=== PATIENT | female | born 1950 | race Asian ===

== ENCOUNTER 2018-03-06 06:20 | Inpatient (IN) | payer MEDICARE ==
[~2018-03-06] VITALS: Ht 154.9 cm; Wt 58.3 kg
[~2018-03-06 06:20] MED LIST: ALPR0.257 PO; ASPI-515 PO; ATOR10TA9 PO; HYDR12.53 PO; IRBE300T16 PO; METO25TA35 PO; OMEP-110 PO; PANT40TA5 PO; TERA2CAP3 PO; TRAZ50TA18 PO
[2018-03-06] MEDS ORDERED: SODIUM CHLORIDE FLUSH 10ML SYR IVF ONE (07:00)
[2018-03-06 07:01] LABS: MEAN CORPUSCULAR HEMOGLOBIN 32.5 pg (27.0-34.8); MEAN CORPUSCULAR HGB CONC 34.3 g/dL (32.4-35.8); MEAN CORPUSCULAR VOLUME 94.6 fL (80-100); MEAN PLATELET VOLUME 6.7 fL (7.4-10.4); PLATELET COUNT 185 x10^3/uL (130-400); RED BLOOD COUNT 3.53 x10^6/uL (3.82-5.3); RED CELL DISTRIBUTION WIDTH 12.6 % (9.6-15.2)
[2018-03-06] MEDS ORDERED: SODIUM CHLORIDE 0.9% 1,000 ML IV ONE ×2 (07:05→10:24)
[2018-03-06 07:13] LABS: ALANINE AMINOTRANSFERASE 15 U/L (12-78); ALBUMIN 2.5 g/dL (3.4-5.0); ANION GAP 12 mmol/L (5-15); CALCIUM 7.9 mg/dL (8.5-10.1); CHLORIDE 95 mmol/L (98-107)
[2018-03-06 07:15] LABS: ALKALINE PHOSPHATASE 76 U/L (45-117); BILIRUBIN,TOTAL 1.2 mg/dL (0.2-1.0); TOTAL PROTEIN 6.1 g/dL (6.4-8.2)
[2018-03-06 07:18] LABS: MD YES
[2018-03-06] MEDS ORDERED: SODIUM CHLORIDE 0.9% 1,000ML IVBOLUS ONE ×2 (07:30→19:30)
[2018-03-06] MEDS ORDERED: ONDANSETRON ODT 4 MG ONE (07:37)
[2018-03-06] MEDS ORDERED: ACETAMINOPHEN 325 MG TABLET ONE ×2 (07:37→14:04)
[2018-03-06 07:49] LABS: <PLATELET ESTIMATE> ADEQUATE; <PLT MORPHOLOGY> NORMAL PLT MORPH; <RBC MORPHOLOGY> NORMAL; BAND#(MANUAL) 0.39 x10^3/uL; BANDS%(MANUAL) 4 % (0-7); LYMPH#(MANUAL) 2.55 x10^3/uL (1-3.4); LYMPHS% (MANUAL) 26 % (22-44); MONOS#(MANUAL) 0.59 x10^3/uL (0.3-2.7); MONOS% (MANUAL) 6 % (2-9); SEG#(MANUAL) 6.27 x10^3/uL (1.8-6.8); SEGS% (MANUAL) 64 % (42-75)
[2018-03-06] MEDS ORDERED: ONDANSETRON ODT 4 MG PO ONE (08:00)
[2018-03-06] MEDS ORDERED: ACETAMINOPHEN 325 MG TABLET PO ONE (08:00)
[2018-03-06] MEDS ORDERED: LOSA100T6 PO (08:06)
[2018-03-06] MEDS ORDERED: AMLO10TA4 PO (08:06)
[2018-03-06] MEDS ORDERED: KDUR PO (08:06)
[2018-03-06] MEDS ORDERED: CEFTRIAXONE PMX 1GM/50ML 50 ML ONE (08:18)
[2018-03-06 08:27] LABS: MICROSCOPIC INDICATED
[2018-03-06] MEDS ORDERED: CEFTRIAXONE PMX 1GM/50ML 50 ML IVPB ONE (08:30)
[2018-03-06 08:44] LABS: CULTURE INDICATED? NO
[2018-03-06] MEDS ORDERED: OMNIPAQUE 350 MG/ML, 100ML BOTTLE ONE (09:00)
[2018-03-06] MEDS ORDERED: METRONIDAZOLE PMX 500MG/100ML 100 ML IVPB ONE (09:30)
[2018-03-06] MEDS ORDERED: METRONIDAZOLE PMX 500MG/100ML 100 ML ONE (09:40)
[2018-03-06] MEDS ORDERED: ONDANSETRON 2MG/ML, 2ML IVPush PRN (10:30)
[2018-03-06] MEDS ORDERED: LABETALOL 5MG/ML, 20ML IVPush PRN (10:30)
[2018-03-06] MEDS ORDERED: morphine SULFATE 10 MG/ML, 1ML IVPush PRN (10:30)
[2018-03-06] MEDS ORDERED: HYDROcodone/APAP 5/325 TABLET PO PRN (10:30)
[2018-03-06] MEDS ORDERED: SODIUM CHLORIDE FLUSH 10ML SYR IVF PRN (10:30)
[2018-03-06 11:08] LABS: CLOSTRIDIUM DIFFICILE ANTIGEN POSITIVE
[2018-03-06 11:09] LABS: CLOSTRIDIUM DIFFICILE TOXIN POSITIVE (Negative)
[2018-03-06 11:10] LABS: INTERNATIONAL NORMALIZED RATIO 1.12 (0.93-1.1); PROTHROMBIN TIME 11.5 Seconds (9.6-11.5)
[2018-03-06 11:28] LABS: FREE T4 (FREE THYROXINE) 1.74 ng/dL (0.76-1.46); THYROID STIMULATING HORMONE 0.726 mIU/L (0.358-3.740)
[2018-03-06 11:54] LABS: HCT (SEDRATE) 33.4 % (34.6-47.8)
[2018-03-06] MEDS ORDERED: SODIUM CHLORIDE 0.9%, 500ML IVBOLUS ONE (12:00)
[2018-03-06] MEDS ORDERED: SODIUM PHOSPHATE 4 MEQ/ML IV SCH (12:00)
[2018-03-06] MEDS ORDERED: VANCOMYCIN 50 MG/ML ORAL SUSP PO SCH ×2 (12:00)
[2018-03-06] MEDS: SODIUM CHLORIDE 0.9% 1,000 ML IV SCH ×2 (12:00→17:07)
[2018-03-06] MEDS ORDERED: MAGNESIUM SULFATE PMX 2GM/50ML 50 ML IV ONE (12:00)
[2018-03-06] MEDS ORDERED: SODIUM PHOSPHATE 30 MMOL in SODIUM CHLORIDE 0.9% 500 ML IV ONE (12:30)
[2018-03-06] MEDS ORDERED: NOREPINEPHRINE 4 MG in SODIUM CHLORIDE 0.9% 246 ML IV PRN (13:00)
[2018-03-06] MEDS: METRONIDAZOLE PMX 500MG/100ML 100 ML IV SCH ×2 (13:11→20:23)
[2018-03-06] MEDS: ACETAMINOPHEN 325 MG TABLET PO PRN ×3 (14:13→22:56)
[2018-03-06] MEDS: VANCOMYCIN 50 MG/ML ORAL SUSP PO SCH (18:02)
[2018-03-07] MEDS: VANCOMYCIN 50 MG/ML ORAL SUSP PO SCH ×5 (00:15→23:31)
[2018-03-07] MEDS ORDERED: SODIUM CHLORIDE 0.9% 500 ML IV ONE (00:30)
[2018-03-07] MEDS ORDERED: SODIUM CHLORIDE 0.9% 500 ML IV SCH (01:00)
[2018-03-07] MEDS: SODIUM CHLORIDE 0.9% 1,000 ML IV SCH ×4 (01:43→20:16)
[2018-03-07] MEDS: METRONIDAZOLE PMX 500MG/100ML 100 ML IV SCH ×4 (01:44→20:16)
[2018-03-07 04:00] VITALS: BP 86/38
[2018-03-07 04:39] LABS: MEAN CORPUSCULAR HEMOGLOBIN 32.3 pg (27.0-34.8); MEAN CORPUSCULAR HGB CONC 33.8 g/dL (32.4-35.8); MEAN CORPUSCULAR VOLUME 95.6 fL (80-100); MEAN PLATELET VOLUME 7.3 fL (7.4-10.4); PLATELET COUNT 163 x10^3/uL (130-400); RED BLOOD COUNT 3.22 x10^6/uL (3.82-5.3)
[2018-03-07 04:42] LABS: ALANINE AMINOTRANSFERASE 14 U/L (12-78); ALBUMIN 1.9 g/dL (3.4-5.0); ANION GAP 10 mmol/L (5-15); CALCIUM 6.8 mg/dL (8.5-10.1); CHLORIDE 106 mmol/L (98-107); CREATININE 0.91 mg/dL (0.55-1.02)
[2018-03-07 04:45] LABS: ALKALINE PHOSPHATASE 65 U/L (45-117); BILIRUBIN,TOTAL 0.5 mg/dL (0.2-1.0); TOTAL PROTEIN 4.9 g/dL (6.4-8.2)
[2018-03-07 05:46] LABS: MD YES
[2018-03-07 05:50] LABS: BAND#(MANUAL) 1.33 x10^3/uL; BANDS%(MANUAL) 12 % (0-7); EOS#(MANUAL) 0.22 x10^3/uL (0.0-0.4); EOS% (MANUAL) 2 % (1-7); LYMPH#(MANUAL) 0.56 x10^3/uL (1-3.4); LYMPHS% (MANUAL) 5 % (22-44); METAMYELOCYTES# (MANUAL) 0.11 x10^3/uL (0-0); METAMYELOCYTES% (MANUAL) 1 % (0-1); MONOS% (MANUAL) 27 % (2-9); SEG#(MANUAL) 5.88 x10^3/uL (1.8-6.8); SEGS% (MANUAL) 53 % (42-75)
[2018-03-07 05:51] LABS: <RBC MORPHOLOGY> NORMAL
[2018-03-07 05:52] LABS: <PLATELET ESTIMATE> ADEQUATE; <PLT MORPHOLOGY> NORMAL PLT MORPH
[2018-03-07] MEDS: LACTOBACILLUS CHEW TABLET PO SCH ×3 (12:27→20:16)
[2018-03-07] MEDS: ENOXAPARIN 40 MG/0.4 ML SQ SCH (12:27)
[2018-03-07] MEDS: ACETAMINOPHEN 325 MG TABLET PO PRN (12:29)
[2018-03-07] MEDS ORDERED: LACTATED RINGERS 500 ML IVBOLUS ONE (15:30)
[2018-03-07] MEDS: PANTOPROZOLE 40MG TABLET PO SCH (20:29)
[2018-03-07] MEDS ORDERED: CALCIUM CARBONATE 500 MG TAB.CHEW PO PRN (20:30)
[2018-03-08] MEDS: ONDANSETRON ODT 4 MG PO PRN ×2 (02:05→08:52)
[2018-03-08] MEDS: METRONIDAZOLE PMX 500MG/100ML 100 ML IV SCH ×4 (02:06→20:05)
[2018-03-08 04:41] VITALS: BP 114/46
[2018-03-08 04:45] LABS: BASOPHILS % (AUTO) 0 % (0-1); EOSINOPHILS # (AUTO) 0.39 x10^3/uL (0-0.4); EOSINOPHILS % (AUTO) 3 % (1-7); LYMPHOCYTES # (AUTO) 0.63 x10^3/uL (1-3.4); LYMPHOCYTES % (AUTO) 5 % (22-44); MD NO; MEAN CORPUSCULAR HEMOGLOBIN 32.3 pg (27.0-34.8); MEAN CORPUSCULAR VOLUME 95.1 fL (80-100); MEAN PLATELET VOLUME 7.6 fL (7.4-10.4); MONOCYTES # (AUTO) 1.38 x10^3/uL (0.2-0.8); MONOCYTES % (AUTO) 11 % (2-9); NEUTROPHILS # (AUTO) 9.88 x10^3/uL (1.8-6.8); NEUTROPHILS % (AUTO) 81 % (42-75); PLATELET COUNT 189 x10^3/uL (130-400)
[2018-03-08 04:50] LABS: ANION GAP 10 mmol/L (5-15); CALCIUM 6.9 mg/dL (8.5-10.1); CHLORIDE 108 mmol/L (98-107)
[2018-03-08 04:58] LABS: ALANINE AMINOTRANSFERASE 13 U/L (12-78); ALBUMIN 1.8 g/dL (3.4-5.0); ALKALINE PHOSPHATASE 96 U/L (45-117); BILIRUBIN,TOTAL 0.3 mg/dL (0.2-1.0); CREATININE 0.63 mg/dL (0.55-1.02)
[2018-03-08] MEDS ORDERED: POTASSIUM PHOSPHATE 44 MEQ in SODIUM CHLORIDE 0.9% 500 ML IV ONE ×2 (05:30→08:30)
[2018-03-08] MEDS: VANCOMYCIN 50 MG/ML ORAL SUSP PO SCH ×3 (06:05→17:57)
[2018-03-08] MEDS: SODIUM CHLORIDE 0.9% 1,000 ML IV SCH ×2 (07:39→20:05)
[2018-03-08] MEDS: PANTOPROZOLE 40MG TABLET PO SCH (07:56)
[2018-03-08] MEDS: LACTOBACILLUS CHEW TABLET PO SCH ×3 (07:56→20:05)
[2018-03-08] MEDS: ENOXAPARIN 40 MG/0.4 ML SQ SCH (12:24)
[2018-03-08 12:27] VITALS: BP 129/74
[2018-03-08 19:41] VITALS: BP 103/56
[2018-03-09] MEDS: VANCOMYCIN 50 MG/ML ORAL SUSP PO SCH ×3 (00:21→12:31)
[2018-03-09] MEDS: METRONIDAZOLE PMX 500MG/100ML 100 ML IV SCH ×2 (02:25→08:44)
[2018-03-09 03:04] VITALS: BP 102/55
[2018-03-09 05:16] LABS: ALBUMIN 1.8 g/dL (3.4-5.0); ANION GAP 11 mmol/L (5-15); CALCIUM 7.2 mg/dL (8.5-10.1); CHLORIDE 107 mmol/L (98-107); MEAN CORPUSCULAR HEMOGLOBIN 32.4 pg (27.0-34.8); MEAN CORPUSCULAR HGB CONC 33.9 g/dL (32.4-35.8); MEAN CORPUSCULAR VOLUME 95.5 fL (80-100); MEAN PLATELET VOLUME 7.4 fL (7.4-10.4); PLATELET COUNT 204 x10^3/uL (130-400); RED BLOOD COUNT 3.44 x10^6/uL (3.82-5.3); RED CELL DISTRIBUTION WIDTH 13.4 % (9.6-15.2)
[2018-03-09 05:19] LABS: ALANINE AMINOTRANSFERASE 27 U/L (12-78); ALKALINE PHOSPHATASE 94 U/L (45-117); BILIRUBIN,TOTAL 0.5 mg/dL (0.2-1.0); CREATININE 0.62 mg/dL (0.55-1.02); TOTAL PROTEIN 4.9 g/dL (6.4-8.2)
[2018-03-09 05:55] LABS: MD YES
[2018-03-09 05:57] LABS: EOS#(MANUAL) 0.27 x10^3/uL (0.0-0.4); EOS% (MANUAL) 5 % (1-7); LYMPH#(MANUAL) 0.64 x10^3/uL (1-3.4); LYMPHS% (MANUAL) 12 % (22-44); MONOS% (MANUAL) 17 % (2-9); NRBC % (MANUAL) 3 % (0-1); SEGS% (MANUAL) 66 % (42-75)
[2018-03-09 05:58] LABS: POLYCHROMASIA 1+
[2018-03-09 05:59] LABS: <PLATELET ESTIMATE> ADEQUATE; <PLT MORPHOLOGY> NORMAL PLT MORPH
[2018-03-09] MEDS: ONDANSETRON ODT 4 MG PO PRN (06:18)
[2018-03-09 08:04] VITALS: BP 112/61
[2018-03-09] MEDS: PANTOPROZOLE 40MG TABLET PO SCH (08:44)
[2018-03-09] MEDS: SODIUM CHLORIDE 0.9% 1,000 ML IV SCH (08:46)
[2018-03-09] MEDS: LACTOBACILLUS CHEW TABLET PO SCH (09:00)
[2018-03-09] MEDS ORDERED: POTASSIUM PHOSPHATE 44 MEQ in SODIUM CHLORIDE 0.9% 500 ML IV ONE (10:00)
[2018-03-09] MEDS: ENOXAPARIN 40 MG/0.4 ML SQ SCH (12:31)
[2018-03-09] MEDS ORDERED: VANC1VIA3 PO (13:12)
[2018-03-09] MEDS ORDERED: FAMO20TA37 PO (13:12)
[2018-03-09 13:49] VITALS: BP 126/69
== END 2018-03-09 14:45 | disposition home or self-care (01) | DRG 871 ==
LOC: ED 10:23 → EDIP 10:24 → ED 10:50 → CCU 13:12 → 3NW 03-08 11:30
PROVIDERS: ADMIT Hospitalist; ATTEND Hospitalist
DX: A41.9 Sepsis, unspecified organism (principal); E43 Unspecified severe protein-calorie malnutrition; R65.21 Severe sepsis with septic shock; N17.9 Acute kidney failure, unspecified; A04.72 Enterocolitis due to Clostridium difficile, not specified as recurrent; E83.39 Other disorders of phosphorus metabolism; E83.42 Hypomagnesemia; I07.1 Rheumatic tricuspid insufficiency; D64.9 Anemia, unspecified; E78.5 Hyperlipidemia, unspecified; K21.9 Gastro-esophageal reflux disease without esophagitis; J06.9 Acute upper respiratory infection, unspecified; I10 Essential (primary) hypertension; Z79.899 Other long term (current) drug therapy; Z79.2 Long term (current) use of antibiotics; Z79.82 Long term (current) use of aspirin; Z80.9 Family history of malignant neoplasm, unspecified; Z68.24 Body mass index [BMI] 24.0-24.9, adult
CPT/HCPCS: 36415; 71045; 74177; 80053; 81001; 82533; 83605; 83690; 83735; 83880; 84100; 84132; 84439; 84443; 85025; 85610; 85651; 87040; 87081; 87324; 89055; 93005; 93306; 96361; 96365; 96366; 96367; 96368; J0696; J1650; J3370; J7120; Q0162; Q9967; J3475; J7030; J7040; J7050

== ENCOUNTER → 2018-04-20 | Outpatient (CLI) | payer MEDICARE ==
[~2018-04-20] MED LIST changes: +AMLO10TA4 PO; +FAMO20TA37 PO; +KDUR PO; +LOSA100T6 PO; +VANC1VIA3 PO
== END | disposition home or self-care (01) ==
LOC: CFH 13:32
PROVIDERS: ATTEND Nurse Practitioner
DX: Z12.31 Encounter for screening mammogram for malignant neoplasm of breast (principal); M81.0 Age-related osteoporosis without current pathological fracture; N95.8 Other specified menopausal and perimenopausal disorders
CPT/HCPCS: 77080; 77067

== ENCOUNTER 2018-12-05 22:18 | Inpatient (IN) | payer MEDICARE ==
[~2018-12-05] VITALS: Ht 152.4 cm; Wt 47.7 kg
[~2018-12-05 22:18] MED LIST changes: +HYDR12.517 PO; -HYDR12.53 PO; -LOSA100T6 PO; +LOSA100T7 PO; -TRAZ50TA18 PO; +TRAZ50TA66 PO
--- NOTE | 2018-12-05 23:06 | NUR ---
PT AND PT DAUGHTER REPORTS N/V ALL DAY TODAY, PT STARTED NEW ABX YESTERDAY AND THINKS THAT MAY BE WHAT IS MAKING HER SICK. PT DENIES DIARRHEA. PT HAVING ABD PAIN R/T VOMITING. PT IN ROOM DRY HEAVING. DAUGHTER CONTINUES AT BEDSIDE. WARM BLANKET PROVIDED. PT A/OX4, BREATHING E/U WHEN NOT VOMITING. CALL LIGHT IN REACH.
--- NOTE | 2018-12-05 23:07 | NUR ---
MD TO BEDSIDE FOR PT EVAL.
[2018-12-05] MEDS ORDERED: ONDANSETRON ODT 4 MG PO ONE (23:30)
[2018-12-05] MEDS ORDERED: FAMOTIDINE 20 MG TABLET PO ONE (23:30)
[2018-12-05] MEDS ORDERED: ACETAMINOPHEN 500 MG TABLET PO ONE (23:30)
[2018-12-05 23:34] LABS: BASOPHILS # (AUTO) 0.01 x10^3/uL (0-0.1); BASOPHILS % (AUTO) 0 % (0-1); EOSINOPHILS # (AUTO) 0.03 x10^3/uL (0-0.4); EOSINOPHILS % (AUTO) 0 % (1-7); LYMPHOCYTES # (AUTO) 1.29 x10^3/uL (1-3.4); LYMPHOCYTES % (AUTO) 17 % (22-44); MD NO; MEAN CORPUSCULAR HEMOGLOBIN 32.7 pg (27.0-34.8); MEAN CORPUSCULAR HGB CONC 33.7 g/dL (32.4-35.8); MEAN CORPUSCULAR VOLUME 97.1 fL (80-100); MONOCYTES # (AUTO) 0.64 x10^3/uL (0.2-0.8); MONOCYTES % (AUTO) 9 % (2-9); NEUTROPHILS # (AUTO) 5.49 x10^3/uL (1.8-6.8); NEUTROPHILS % (AUTO) 74 % (42-75); PLATELET COUNT 194 x10^3/uL (130-400); RED BLOOD COUNT 4.07 x10^6/uL (3.82-5.3); RED CELL DISTRIBUTION WIDTH 12.8 % (9.6-15.2)
[2018-12-05] MEDS ORDERED: FAMOTIDINE 20 MG TABLET ONE (23:42)
[2018-12-05] MEDS ORDERED: ONDANSETRON ODT 4 MG ONE ×2 (23:42→23:47)
[2018-12-05] MEDS ORDERED: ACETAMINOPHEN 500 MG TABLET ONE (23:42)
[2018-12-05 23:45] LABS: ALANINE AMINOTRANSFERASE 21 U/L (12-78); ALBUMIN 3.7 g/dL (3.4-5.0); ANION GAP 9 mmol/L (5-15); CALCIUM 8.8 mg/dL (8.5-10.1); CHLORIDE 93 mmol/L (98-107); CREATININE 1.03 mg/dL (0.55-1.02)
[2018-12-05 23:48] LABS: ALKALINE PHOSPHATASE 89 U/L (45-117); BILIRUBIN,TOTAL 0.8 mg/dL (0.2-1.0); TOTAL PROTEIN 7.6 g/dL (6.4-8.2)
--- NOTE | 2018-12-05 23:49 | NUR ---
PT RECIEVED MEDS PER ORDERS, SEE EMAR. PT DROPPED FIRST ZOFRAN, ANOTHER ZOFRAN PULLED AND GIVEN TO PT. PT ONLY RECIEVED ONE ZOFRAN. PT STATES SHE DOES NOT THINK SHE CAN URINTE AT THIS TIME. WILL WAIT FOR MEDS TO TAKE EFFECT FOR PT TO URINATE. PT RESTING IN BED, NO EMESIS AT THIS TIME. PT FAMILY AT BEDSIDE. WILL CONTINUE TO MONITOR.
--- NOTE | 2018-12-06 00:15 | NUR ---
PT UP TO RESTROOM WITH STEADY GAIT FOR URINE SAMPLE. PT REPORTS IMPROVED NAUSEA AND ABD PAIN.
--- NOTE | 2018-12-06 00:32 | NUR ---
PT BACK TO BED WITH STEADY GAIT. URINE SENT TO LAB. URINE IS BRIGHT ORANGE, PT REPORTS SHE TOOK PYRIDIUM FOR THE UTI PAIN. PT RESTING IN BED, FAMILY CONTINUES AT BEDSIDE. PT REPORTS ABD CONTINUES TO IMRPOVE WELL NAUSEA. NO EMESIS SINCE MEDS GIVEN.
[2018-12-06 00:50] LABS: CULTURE INDICATED? YES; MICROSCOPIC INDICATED
--- NOTE | 2018-12-06 00:59 | NUR ---
REPORT TO MEHRAN JUAREZ FOR LUNCH RELIEF.
[2018-12-06] MEDS ORDERED: CEFDINIR 300 MG CAPSULE ONE (01:00)
--- NOTE | 2018-12-06 01:07 | NUR ---
BREAK RN: PT MEDICATED PER EMAR, PO CHALLENGE SUCCESS. PT STATES SHE HAS BEEN TAKING SIPS OF WATER WITHOUT EMESIS. MD WILLS
--- NOTE | 2018-12-06 01:33 | NUR ---
REPORT FROM MEHRAN JUAREZ
--- NOTE | 2018-12-06 01:34 | NUR ---
MD TO BEDSIDE FOR UPDATE.
[2018-12-06] MEDS ORDERED: ONDANSETRON 2MG/ML, 2ML ONE (01:49)
[2018-12-06] MEDS ORDERED: ONDANSETRON 2MG/ML, 2ML IVPush ONE (02:00)
--- NOTE | 2018-12-06 02:11 | NUR ---
IV PLACED. PT RECIEVED ZOFRAN PER ORDERS, SEE EMAR. VSS. PT AWAITING ROOM ASSIGNMENT. PT RESTING COMFORTABLY WITH FAMILY AT BEDSIDE. NO ACUTE DISTRESS NOTED.
[2018-12-06] MEDS ORDERED: OMEP20TA62 PO (02:34)
[2018-12-06] MEDS ORDERED: SPIR25TA5 PO (02:34)
[2018-12-06] MEDS ORDERED: AMLO2.5T3 PO (02:35)
--- NOTE | 2018-12-06 02:35 | NUR ---
MED LIST UPDATED. PT RESTING COMFORTABLY, DENIES NEEDS. PT AWAITING ROOM ASSIGNMENT. VSS. WILL CONTINUE TO MONITOR. NO EMESIS NOTED.
--- NOTE | 2018-12-06 03:21 | NUR ---
PT UP TO RESTROOM AND BACK TO BED WITH STEADY GAIT. PT RESTING COMFORTABLY AT THIS TIME, DENIES FUTHER NEEDS. WILL MONITOR.
--- NOTE | 2018-12-06 03:36 | NUR ---
report to Abbie JUAREZ. pt to go to room 465.
[2018-12-06] MEDS ORDERED: ONDANSETRON 2MG/ML, 2ML IVPush PRN (05:30)
[2018-12-06] MEDS ORDERED: ACETAMINOPHEN 325 MG TABLET PO PRN (05:30)
[2018-12-06] MEDS ORDERED: POLYETHYLENE GLYCOL 17 GM PACKET PO PRN (05:30)
[2018-12-06] MEDS ORDERED: IBUPROFEN 600 MG TABLET PO PRN (05:30)
[2018-12-06] MEDS: CEFTRIAXONE PMX 2GM/50ML 50 ML IV SCH (06:02)
[2018-12-06] MEDS: ENOXAPARIN 40 MG/0.4 ML SQ SCH (06:03)
[2018-12-06] MEDS: SODIUM CHLORIDE 0.9% 1,000 ML IV SCH ×2 (06:03→15:54)
[2018-12-06 07:14] VITALS: BP 98/61
[2018-12-06] MEDS: AMLODIPINE 2.5 MG TABLET PO SCH (08:47)
[2018-12-06] MEDS: OMEPRAZOLE 20 MG CAPSULE.DR PO SCH (08:47)
[2018-12-06] MEDS: ASPIRIN 81 MG TABLET EC PO SCH (08:47)
[2018-12-06 08:48] VITALS: BP 100/62
[2018-12-06] MEDS: SPIRONOLACTONE 25 MG TABLET PO SCH (08:48)
[2018-12-06] MEDS: METOPROLOL TARTRATE 25 MG TABLET PO SCH ×2 (08:48→21:08)
[2018-12-06] MEDS: LOSARTAN 50MG TABLET PO SCH (08:48)
[2018-12-06] MEDS ORDERED: CEFDINIR 300 MG CAPSULE PO SCH (09:00)
[2018-12-06 12:24] VITALS: BP 107/66
[2018-12-06 12:30] LABS: ANION GAP 7 mmol/L (5-15); CALCIUM 8.5 mg/dL (8.5-10.1); CHLORIDE 99 mmol/L (98-107)
[2018-12-06 12:35] LABS: CREATININE 1.08 mg/dL (0.55-1.02)
[2018-12-06 19:20] VITALS: BP 124/64
[2018-12-06] MEDS ORDERED: ATORVASTATIN 10 MG TABLET PO SCH (21:00)
[2018-12-07] MEDS: SODIUM CHLORIDE 0.9% 1,000 ML IV SCH (01:20)
[2018-12-07 01:30] VITALS: BP 96/54
[2018-12-07] MEDS: CEFTRIAXONE PMX 2GM/50ML 50 ML IV SCH (05:31)
[2018-12-07] MEDS: ENOXAPARIN 40 MG/0.4 ML SQ SCH (05:32)
[2018-12-07 06:32] LABS: BASOPHILS # (AUTO) 0.03 x10^3/uL (0-0.1); BASOPHILS % (AUTO) 1 % (0-1); EOSINOPHILS # (AUTO) 0.16 x10^3/uL (0-0.4); EOSINOPHILS % (AUTO) 3 % (1-7); LYMPHOCYTES # (AUTO) 1.72 x10^3/uL (1-3.4); LYMPHOCYTES % (AUTO) 31 % (22-44); MD NO; MEAN CORPUSCULAR HEMOGLOBIN 33.5 pg (27.0-34.8); MEAN CORPUSCULAR HGB CONC 34.4 g/dL (32.4-35.8); MEAN CORPUSCULAR VOLUME 97.5 fL (80-100); MEAN PLATELET VOLUME 7.3 fL (7.4-10.4); MONOCYTES # (AUTO) 0.68 x10^3/uL (0.2-0.8); MONOCYTES % (AUTO) 12 % (2-9); NEUTROPHILS # (AUTO) 2.91 x10^3/uL (1.8-6.8); NEUTROPHILS % (AUTO) 53 % (42-75); PLATELET COUNT 183 x10^3/uL (130-400); RED BLOOD COUNT 3.62 x10^6/uL (3.82-5.3); RED CELL DISTRIBUTION WIDTH 12.5 % (9.6-15.2)
[2018-12-07 06:57] LABS: ALANINE AMINOTRANSFERASE 19 U/L (12-78); ALBUMIN 3.1 g/dL (3.4-5.0); ANION GAP 6 mmol/L (5-15); CALCIUM 8.4 mg/dL (8.5-10.1); CHLORIDE 108 mmol/L (98-107); CREATININE 0.96 mg/dL (0.55-1.02)
[2018-12-07 07:50] LABS: ALKALINE PHOSPHATASE 65 U/L (45-117); BILIRUBIN,TOTAL 0.6 mg/dL (0.2-1.0); TOTAL PROTEIN 6.7 g/dL (6.4-8.2)
[2018-12-07 08:05] VITALS: BP 125/71
[2018-12-07] MEDS: METOPROLOL TARTRATE 25 MG TABLET PO SCH (09:44)
[2018-12-07] MEDS: LOSARTAN 50MG TABLET PO SCH (09:44)
[2018-12-07] MEDS: ASPIRIN 81 MG TABLET EC PO SCH (09:44)
[2018-12-07] MEDS: OMEPRAZOLE 20 MG CAPSULE.DR PO SCH (09:44)
[2018-12-07] MEDS: AMLODIPINE 2.5 MG TABLET PO SCH (09:44)
[2018-12-07] MEDS: SPIRONOLACTONE 25 MG TABLET PO SCH (09:48)
[2018-12-07 09:59] LABS: SODIUM,URINE RANDOM 115 mmol/L
[2018-12-07 10:44] LABS: OSMOLALITY,URINE 364 mOsm/kg (500-850)
[2018-12-07] MEDS ORDERED: CEPH-368 PO (12:23)
[2018-12-07 13:15] VITALS: BP 126/74
[2018-12-07] MEDS ORDERED: LOSARTAN 50MG TABLET PO SCH (21:00)
[2018-12-08] MEDS ORDERED: SODIUM CHLORIDE 0.9% 1,000 ML IV SCH (05:22)
== END 2018-12-07 16:00 | disposition home or self-care (01) | DRG 690 ==
LOC: ED 23:35 → EDIP 12-06 01:45 → 4NOR 12-06 03:50 → DCLOUNGE 12-07 15:45
PROVIDERS: ADMIT Hospitalist; ATTEND Hospitalist
DX: N30.00 Acute cystitis without hematuria (principal); E87.1 Hypo-osmolality and hyponatremia; R11.2 Nausea with vomiting, unspecified; I10 Essential (primary) hypertension; K21.9 Gastro-esophageal reflux disease without esophagitis; E78.00 Pure hypercholesterolemia, unspecified; E78.5 Hyperlipidemia, unspecified; Z88.8 Allergy status to other drugs, medicaments and biological substances; Z88.2 Allergy status to sulfonamides
CPT/HCPCS: 36415; 80048; 80053; 81001; 83690; 83735; 83930; 83935; 84100; 84300; 84443; 85025; 87086; 96374; G0378; J0696; J1650; J2405; Q0162; J7030

== ENCOUNTER 2021-01-16 11:36 | Observation (INO) | payer OTHER, MEDICARE ==
[~2021-01-16] VITALS: Ht 149.9 cm; Wt 50.2 kg
[~2021-01-16 11:36] MED LIST changes: +AMLO2.5T5 PO; -ASPI-515 PO; +ASPI-963 PO; +CEPH-368 PO; -IRBE300T16 PO; +IRBE300T8 PO; +LOSA100T14 PO; -LOSA100T7 PO; +OMEP20TA62 PO; -PANT40TA5 PO; +PANT40TA6 PO; +SPIR25TA5 PO
[2021-01-16] MEDS ORDERED: SODIUM CHLORIDE FLUSH 10ML SYR IVF ONE (12:00)
[2021-01-16 12:17] LABS: BASOPHILS % (AUTO) 1 % (0-1); EOSINOPHILS % (AUTO) 3 % (1-7); LYMPHOCYTES % (AUTO) 21 % (22-44); MEAN CORPUSCULAR HEMOGLOBIN 32.9 pg (27.0-34.8); MEAN CORPUSCULAR HGB CONC 33.9 g/dL (32.4-35.8); MEAN PLATELET VOLUME 6.7 fL (7.4-10.4); MONOCYTES % (AUTO) 11 % (2-9); NEUTROPHILS % (AUTO) 65 % (42-75); PLATELET COUNT 255 x10^3/uL (130-400); RED BLOOD COUNT 4.49 x10^6/uL (3.82-5.3); RED CELL DISTRIBUTION WIDTH 13.1 % (9.6-15.2)
[2021-01-16 12:18] LABS: MD NO
[2021-01-16 12:30] LABS: ANION GAP 7 mmol/L (5-15); CALCIUM 9.3 mg/dL (8.5-10.1); CHLORIDE 105 mmol/L (98-107)
[2021-01-16 12:37] LABS: ALANINE AMINOTRANSFERASE 36 U/L (12-78); ALKALINE PHOSPHATASE 136 U/L (45-117); BILIRUBIN,TOTAL 0.6 mg/dL (0.2-1.0); TOTAL PROTEIN 8.5 g/dL (6.4-8.2); TROPONIN I < 0.015 ng/mL (0.000-0.045)
[2021-01-16] MEDS ORDERED: ASPIRIN 81 MG TABLET CHEW ONE (13:15)
--- NOTE | 2021-01-16 13:23 | NUR ---
pt in bed with granddaughter at bedside, awake and alert, states that chest pressure unchanged, still rated 5/10. pt with monitoring manager in place and bed rails up bilaterally, call light within reach. pt out to imaging with tech as transporter taken via gurney with no signs or symptoms of acute distress noted respirations even and unlabored.
[2021-01-16] MEDS ORDERED: ASPIRIN 81 MG TABLET CHEW PO ONE (13:30)
[2021-01-16] MEDS ORDERED: OMNIPAQUE 350 MG/ML, 75ML BOTTLE ONE (13:40)
[2021-01-16] MEDS ORDERED: POTA8CAP20 PO (14:14)
[2021-01-16] MEDS ORDERED: AMLO-150 PO (14:14)
[2021-01-16] MEDS ORDERED: FAMO-79 PO (14:14)
[2021-01-16] MEDS ORDERED: HYDR-3342 PO (14:14)
--- NOTE | 2021-01-16 14:43 | NUR ---
PT REPORT CALLED TO ADITYA PT AWARE AND AGREEABLE WITH PLAN OF CARE. NO SIGNS OR SYMPTOMS OF ACUTE DSITRESS NOTED RESPIRATIONS EVEN AND UNLABORED, PT READY TO TRANSPORT
[2021-01-16 15:29] VITALS: BP 129/79
[2021-01-16 18:00] VITALS: BP 158/83
[2021-01-16] MEDS ORDERED: MELATONIN 5 MG TABLET PO PRN (18:00)
[2021-01-16] MEDS ORDERED: DOCUSATE 100 MG CAPSULE PO PRN (18:00)
[2021-01-16] MEDS ORDERED: LABETALOL 5MG/ML, 20ML IVPush PRN (18:00)
[2021-01-16] MEDS ORDERED: NITROGLYCERIN 0.4 MG BOTTLE (25 TABS) SL PRN (18:00)
[2021-01-16] MEDS ORDERED: ONDANSETRON 2MG/ML, 2ML IVPush PRN (18:00)
[2021-01-16] MEDS ORDERED: LACTATED RINGERS 1,000 ML IV SCH (18:00)
[2021-01-16] MEDS ORDERED: ACETAMINOPHEN 325 MG TABLET PO PRN (18:00)
[2021-01-16] MEDS ORDERED: POLYETHYLENE GLYCOL 17 GM PACKET PO PRN (18:00)
[2021-01-16] MEDS ORDERED: morphine SULFATE 10 MG/ML, 1ML IVPush PRN (18:00)
[2021-01-16] MEDS ORDERED: ONDANSETRON ODT 4 MG PO PRN (18:00)
[2021-01-16 18:43] LABS: FREE T4 (FREE THYROXINE) 1.08 ng/dL (0.76-1.46); TROPONIN I 0.038 ng/mL (0.000-0.045)
[2021-01-16 19:06] VITALS: BP 135/75
[2021-01-16 19:45] VITALS: BP 135/75
[2021-01-16] MEDS: HEPARIN 5,000 UNITS/ML, 1ML SQ SCH (20:20)
[2021-01-16] MEDS ORDERED: ATORVASTATIN 40 MG TABLET PO SCH (21:00)
[2021-01-16] MEDS ORDERED: LOSARTAN 100 MG TAB PO SCH (21:00)
[2021-01-16 23:36] LABS: TROPONIN I 0.026 ng/mL (0.000-0.045)
[2021-01-16 23:59] LABS: MICROSCOPIC AUTO
[2021-01-17 01:24] VITALS: BP 150/78
[2021-01-17] MEDS: HEPARIN 5,000 UNITS/ML, 1ML SQ SCH ×2 (05:14→11:06)
[2021-01-17 05:38] LABS: ALBUMIN 3.1 g/dL (3.4-5.0); ANION GAP 8 mmol/L (5-15); CALCIUM 8.8 mg/dL (8.5-10.1); CHLORIDE 103 mmol/L (98-107)
[2021-01-17 05:45] LABS: ALANINE AMINOTRANSFERASE 32 U/L (12-78); ALKALINE PHOSPHATASE 119 U/L (45-117); BILIRUBIN,TOTAL 0.6 mg/dL (0.2-1.0); CHOL/HDL RATIO 1.8; CHOLESTEROL, TOTAL 156 mg/dL (140-239); CREATININE 0.84 mg/dL (0.55-1.02); HDL CHOL % 55 % (28-40); HDL CHOLESTEROL (DIRECT) 86 mg/dL (40-60); LDL CHOLESTEROL,CALCULATED 61 mg/dL (54-169); LDL/HDL RATIO 0.7 (0.5-3.0); TOTAL PROTEIN 7.1 g/dL (6.4-8.2); TRIGLYCERIDES 45 mg/dL (50-200); VLDL CHOLESTEROL 9 mg/dL (0-25)
[2021-01-17] MEDS ORDERED: ASPIRIN 325 MG TABLET EC PO SCH (06:00)
[2021-01-17 07:25] VITALS: BP 147/70
[2021-01-17] MEDS ORDERED: PANTOPRAZOLE 40MG TABLET PO SCH (07:30)
[2021-01-17] MEDS ORDERED: REGADENOSON 0.4 MG/5 ML SYRINGE ONE (08:42)
[2021-01-17] MEDS ORDERED: POTASSIUM CHLORIDE 20 MEQ TAB.ER.PRT PO ONE (09:00)
[2021-01-17] MEDS ORDERED: AMLODIPINE 5 MG TABLET PO SCH (09:00)
[2021-01-17] MEDS ORDERED: PANT40TA6 PO (15:27)
[2021-01-17] MEDS ORDERED: METO25TA2 PO (15:27)
[2021-01-17] MEDS ORDERED: MELA5TAB14 PO (15:27)
[2021-01-17] MEDS ORDERED: LOSA100T14 PO (15:27)
[2021-01-17] MEDS ORDERED: AMLO-150 PO (15:27)
[2021-01-17 15:55] VITALS: BP 144/81
[2021-01-17] MEDS ORDERED: FAMO-79 PO (17:22)
== END 2021-01-17 17:26 | disposition home or self-care (01) ==
LOC: ED 13:54 → INTOOBSV 13:55 → EDIP 13:55 → ED 14:03 → 5SO 14:57
PROVIDERS: ADMIT Hospitalist; ATTEND Internal Medicine
DX: R07.89 Other chest pain (principal); I10 Essential (primary) hypertension; E78.5 Hyperlipidemia, unspecified; K21.9 Gastro-esophageal reflux disease without esophagitis; R00.2 Palpitations; R00.0 Tachycardia, unspecified; Z79.899 Other long term (current) drug therapy; Z79.82 Long term (current) use of aspirin
CPT/HCPCS: 36415; 71045; 71275; 78452; 80053; 80061; 81001; 83690; 83735; 84100; 84439; 84443; 84481; 84484; 85025; 87086; 93005; 93017; 93306; 96360; 96361; 96372; 99285; A9502; G0378; J1644; J2785; J7120; Q9967

== ENCOUNTER 2021-04-01 12:56 | Outpatient (CLI) | payer OTHER, MEDICARE ==
[~2021-04-01 12:56] MED LIST changes: +AMLO-150 PO; +FAMO-79 PO; +HYDR-3342 PO; +MELA5TAB14 PO; +METO25TA2 PO; +POTA8CAP20 PO; -VANC1VIA3 PO; +VANC1VIA36 PO
== END 2021-04-01 23:59 | disposition home or self-care (01) ==
LOC: CFH 12:56
PROVIDERS: ATTEND Family Medicine
DX: Z12.31 Encounter for screening mammogram for malignant neoplasm of breast (principal); M81.0 Age-related osteoporosis without current pathological fracture
CPT/HCPCS: 77063; 77067; 77080